=== PATIENT | male | born 1970 | race Two or more races ===

== ENCOUNTER 2023-04-08 08:13 | Day surgery (SDC) | payer BC, SELFPAY ==
[2023-04-06 12:33] VITALS: BMI 35.7
--- NOTE | 2023-04-06 15:25 | P.CONAN_ITS ---
Documented by User: Sophia Lauren NP 04/06/23 15:25 HPI - Anesthesia Eval Consult details Narrative: 53yo F for Upper Endoscopy and Colonoscopy FOR[facility], [facility] Past Medical History Medical History Umbilical hernia Chronic alcohol use Lumbar spondylosis GERD (gastroesophageal reflux disease) Hyperlipidemia HTN (hypertension) Asthma Diabetes Surgical History Surgical History History of inguinal hernia repair, bilateral Social History Social History Patient Tobacco Use Status: Former Tobacco user Are you DNR?: No Advance Directives: No Advance Directives Information Provided: Yes Nutrition Risks: No Nutritional Risk Meds Allergies Allergy/AdvReac Type Severity Reaction Status Date / Time No Known Allergies Allergy Verified 04/08/23 08:33 Home Medications Medication Instructions Recorded Confirmed Last Taken Type metformin 500 mg tablet 500 mg PO DAILY 04/06/23 04/06/23 Unknown History omeprazole 20 mg capsule,delayed 20 mg PO DAILY 04/06/23 04/06/23 Unknown History release rosuvastatin 40 mg tablet 40 mg PO DAILY 04/06/23 04/06/23 Unknown History amlodipine 5 mg-benazepril 20 mg 1 cap PO DAILY 04/08/23 04/08/23 04/08/23 History capsule Exam Height,Weight and Vital Signs: Height 5 ft 6 in Weight 100.244 kg Assessment and Plan Assessment Anesthesia Assessment: Chart Reviewed Documented by User: Arleth Valdes MD 04/08/23 09:02 [facility] Past Medical History Medical History Umbilical hernia Chronic alcohol use Lumbar spondylosis GERD (gastroesophageal reflux disease) Hyperlipidemia HTN (hypertension) Asthma Diabetes Surgical History Surgical History History of inguinal hernia repair, bilateral History of Problems with Anesthesia: No Social History Social History Patient Tobacco Use Status: Former Tobacco user Are you DNR?: No Advance Directives: No Advance Directives Information Provided: Yes Nutrition Risks: No Nutritional Risk Meds Allergies Allergy/AdvReac Type Severity Reaction Status Date / Time No Known Allergies Allergy Verified 04/08/23 08:33 Home Medications Medication Instructions Recorded Confirmed Last Taken Type metformin 500 mg tablet 500 mg PO DAILY 04/06/23 04/06/23 Unknown History omeprazole 20 mg capsule,delayed 20 mg PO DAILY 04/06/23 04/06/23 Unknown History release rosuvastatin 40 mg tablet 40 mg PO DAILY 04/06/23 04/06/23 Unknown History amlodipine 5 mg-benazepril 20 mg 1 cap PO DAILY 04/08/23 04/08/23 04/08/23 History capsule Exam Airway Mallampati Class: III TM Dist: >3cm Neck ROM: Full Loose/Missing/Broken Teeth: No Heart: RRR Lungs: CTA Assessment and Plan Assessment Anesthesia Assessment: Anesthesia Plan Discussed Final Anesthetic Review History of Problems with Anesthesia: No NPO: Yes ASA Class: II Final Preanesthetic Review: Meds/Allgs Chart Reviewed, Consent Obtained/Reviewed and Anes Risks/Benef Reviewed Patient Risk: Low Procedure Risk: Intermediate Anesthetic Plan Anesthetic Plan: MAC: Disposition: Standard PACU
[2023-04-08 08:34] VITALS: BMI 35.8
[2023-04-08] MEDS: Lactated Ringers 1,000 ML 100 ML IVCONT (08:38)
[2023-04-08 08:45] LABS: Glucose, Whole Blood 121 mg/dL (60-115)
[2023-04-08 08:52] VITALS: BP 155/94; PULSE 86; RESP 18; TEMP 36.6; O2SAT 98
--- NOTE | 2023-04-08 09:24 | MHC.SHP ---
Pre-Procedural Eval Section A Date of Service: 04/08/23 Section B Chief Complaint: reflux disease,screening Details of Present Illness: see H&P no changes Relevant Family History (Specify if Yes): No Relevant Social History: None Present Medications: see Short Stay Collaborative assessment Medical History: No relevant PMH History of Previous Operations: No relevant previous surgery Allergies: Allergies Allergy/AdvReac Type Severity Reaction Status Date / Time No Known Allergies Allergy Verified 04/08/23 08:33 Review of Systems Sugical H&P ROS: Negative: Constitution, Cardiovascular, Respiratory, Neurological, Psychiatric, Hem-Onc, Allergic/Immunologic, Gastrointestinal, Genitourinary, Musculoskeletal, Integumentary, Endocrine and Eyes/Ears/Nose/Throat Exam Surgical H&P Exam: Normal: HEENT, Normal: Heart, Normal: Lungs, Normal: Extremities, Normal: Abdomen, Normal: Skin and Normal: Neurological Plan Diagnosis/Plan: Unchanged I have reviewed the history and physical and performed a pertinent physical examination on my patient. No changes have occurred unless specified. Time Spent With Patient Time: Total time managing care of this patient today ____ minutes.
[2023-04-08 10:29] VITALS: BP 119/73; PULSE 112; RESP 16; TEMP 36.1; O2SAT 92
[2023-04-08 10:44] VITALS: BP 137/94; PULSE 98; RESP 16; TEMP 36.5; O2SAT 99
--- NOTE | 2023-04-08 11:23 | OP_ITS ---
DATE OF SERVICE: 04/08/2023 SURGEON: Yeison Dexter MD INDICATIONS: 1. Gastroesophageal reflux disease. 2. Colon cancer screening. PREOPERATIVE DIAGNOSIS: POSTOPERATIVE DIAGNOSIS: PROCEDURE PERFORMED: Upper endoscopy with biopsy, colonoscopy to the terminal ilium with snare polypectomy. ESTIMATED BLOOD LOSS: COMPLICATIONS: ANESTHESIA: Monitored anesthesia care. ASSISTANTS: SPECIMENS: DESCRIPTION OF PROCEDURE: A history and physical was performed. The risks and benefits of the procedure were explained to the patient, and informed consent was obtained. The patient was placed in the left lateral decubitus position. The Olympus video gastroscope was introduced into the esophagus, stomach, and duodenum. Examination was performed. The scope was removed. He was repositioned for a colonoscopy. A digital rectal exam was performed and was found to be normal. The Olympus pediatric video colonoscope was introduced into the rectum and advanced to the cecum. The cecum was identified by transillumination, palpation, and identification of ileocecal valve. Examination was performed. The scope was removed. He tolerated both procedures well and was returned to the recovery area in stable condition. FINDINGS: Upper endoscopy: 1. Esophagus: The esophagus was normal. There was an irregular EG junction and a small sliding hiatal hernia. Biopsies were obtained from the EG junction. 2. Stomach: The stomach showed multiple benign-appearing gastric polyps, mainly in the body. All were less than 10 mm. Two were biopsied. Antral biopsies were obtained to evaluate for H pylori. 3. Duodenum: The bulb and 2nd portion were normal. Colonoscopy: The terminal ileum was examined and appeared normal. The visualized colonic mucosa was within normal limits without evidence of masses or ulcers. Two polyps were identified and removed with a snare both measured less than 10 mm. The first was located at 50 cm. The second was located in the rectum. There was moderate sigmoid diverticulosis. Retroflexed examination showed some moderate-sized internal hemorrhoids. IMPRESSION: 1. Gastric polyps. 2. Gastroesophageal reflux disease. 3. Colon polyps. RECOMMENDATION: Follow up the biopsy results. MD SOLOMON Cerrato/LAKIA / [id number]
== END 2023-04-08 11:20 | disposition home or self-care (01) ==
PROVIDERS: PCP Internal Medicine; Visit Provider Internal Medicine Gastroenterology
PROC: (CPT 45385; principal; 2023-04-08 10:00)
DX: Z12.11 Encounter for screening for malignant neoplasm of colon (principal); Z83.719 Family history of colon polyps, unspecified; D12.5 Benign neoplasm of sigmoid colon; D12.8 Benign neoplasm of rectum; K57.30 Diverticulosis of large intestine without perforation or abscess without bleeding; K21.9 Gastro-esophageal reflux disease without esophagitis; K31.7 Polyp of stomach and duodenum; K44.9 Diaphragmatic hernia without obstruction or gangrene; K64.8 Other hemorrhoids; F10.20 Alcohol dependence, uncomplicated; J45.20 Mild intermittent asthma, uncomplicated; I10 Essential (primary) hypertension; E78.5 Hyperlipidemia, unspecified; K42.9 Umbilical hernia without obstruction or gangrene; M47.816 Spondylosis without myelopathy or radiculopathy, lumbar region; E11.9 Type 2 diabetes mellitus without complications; Z79.84 Long term (current) use of oral hypoglycemic drugs; Z79.899 Other long term (current) drug therapy
CPT/HCPCS: 45385; 43239; 82947; 88305; 88342; J1885; J2250; J2704